=== PATIENT | male | born 1965 | race Caucasian/White ===

== ENCOUNTER → 2017-10-23 | Outpatient (CLI) | payer MEDICARE ==
--- NOTE | 2017-10-23 13:59 | XR ---
EXAMINATION TYPE: XR hand complete bilateral DATE OF EXAM: 10/23/2017 COMPARISON: NONE HISTORY: Pain TECHNIQUE: Three views are submitted. FINDINGS: The osseous structures are intact. There is narrowing the first carpal metacarpal joint. Narrowing of the MCP joint first 3 digits. No erosive changes. No acute fracture or dislocation. IMPRESSION: 1. Bilateral arthropathy with the most marked findings involving the first carpal metacarpal joint in a pattern compatible osteoarthritis.
== END | disposition home or self-care (01) ==
LOC: RADXRMAIN 13:24
PROVIDERS: ATTEND Psychiatry & Neurology Neurology
DX: M19.042 Primary osteoarthritis, left hand (principal); M19.041 Primary osteoarthritis, right hand